=== PATIENT | female | born 1990 | race Caucasian/White ===

== ENCOUNTER 2017-03-02 19:07 | Emergency (ER) | payer MEDICAID ==
[~2017-03-02] VITALS: Ht 162.6 cm; Wt 50.0 kg
[2017-03-02] MEDS ORDERED: LORAZEPAM 2MG/ML CPJ IM STA (20:21)
[2017-03-02] MEDS ORDERED: HALOPERIDOL LACTATE 5MG/ML VIAL IM STA (20:21)
[2017-03-02] MEDS ORDERED: DIPHENHYDRAMINE 50MG/ML VIAL IM ONE (22:15)
[2017-03-02] MEDS ORDERED: HALOPERIDOL LACTATE 5MG/ML VIAL IM ONE (22:15)
[2017-03-02] MEDS ORDERED: LORAZEPAM 2MG/ML CPJ IM ONE (22:15)
[2017-03-02 22:45] LABS: BASOPHILS % 0.9 % (0.0-2.0); EOSINOPHILS % 4.3 % (0.0-5.0); HEMATOCRIT. 37.3 % (36.0-48.0); HEMOGLOBIN. 12.5 g/dL (12.0-16.0); LYMPHOCYTES % 34.6 % (20.0-50.0); MEAN CORPUSCULAR HEMOGLOBIN 30.4 pg (28.0-32.0); MEAN CORPUSCULAR VOLUME 90.5 fL (81.0-99.0); MEAN PLATELET VOLUME 8.9 fl (7.4-10.4); MONOCYTES % 7.3 % (2.0-8.0); NEUTROPHILS % 52.9 % (40.0-76.0); PLATELET 205 x1000/uL (130-400); RED BLOOD CELL COUNT 4.12 mill/uL (4.2-5.4); RED CELL DISTRIBUTION WIDTH 13.1 % (11.6-14.6)
[2017-03-02 22:51] LABS: CHLORIDE 109 mEq/L (98-107)
[2017-03-02 22:54] LABS: HCG SCREEN NEGATIVE
[2017-03-02 22:59] LABS: CARBON DIOXIDE 26 mEq/L (21-32); ETHANOL BLOOD < 10 mg/dL
[2017-03-02 23:55] LABS: CLARITY URINE CLEAR (CLEAR); COLOR URINE YELLOW (YELLOW); KETONES URINE NEGATIVE (NEGATIVE); LEUKOCYTE ESTERASE URINE 2+ (NEGATIVE); NITRITE URINE NEGATIVE (NEGATIVE); OCCULT BLOOD URINE NEGATIVE (NEGATIVE); PH URINE 6.5 (4.5-8.0); PROTEIN URINE NEGATIVE (NEGATIVE); SPECIFIC GRAVITY URINE 1.023 (1.005-1.030); UROBILINOGEN URINE 0.2 E.U./dL (0.2-1.0)
[2017-03-03 00:14] LABS: *AMPHETAMINES SCREEN URINE NEGATIVE (NEGATIVE); *BARBITURATES SCREEN URINE NEGATIVE (NEGATIVE); *BENZODIAZEPINES SCREEN URINE NEGATIVE (NEGATIVE); *COCAINE SCREEN URINE NEGATIVE (NEGATIVE); METHADONE URINE SCREEN NEGATIVE (NEGATIVE); OPIATES URINE SCREEN NEGATIVE (NEGATIVE); PHENCYCLIDINE URINE SCREEN NEGATIVE (NEGATIVE)
[2017-03-03 00:15] LABS: CANNABINOID URINE SCREEN PRESUMTIVE POSITIVE (NEGATIVE)
[2017-03-03] MEDS ORDERED: CEFTRIAXONE 1 G PREMIX 50 ML IV ONE (01:00)
[2017-03-06] MEDS ORDERED: HALOPERIDOL LACTATE 5MG/ML VIAL IM ONE (13:30)
[2017-03-06] MEDS ORDERED: LORAZEPAM 2MG/ML CPJ IM ONE (13:30)
[2017-03-08 16:49] VITALS: BP 98/52
== END 2017-03-08 16:53 ==
LOC: EDBD 19:19 → ER 19:19
DX: F23 Brief psychotic disorder (principal); N39.0 Urinary tract infection, site not specified; F12.929 Cannabis use, unspecified with intoxication, unspecified
CPT/HCPCS: 36415; 70450; 71010; 80053; 80305; 80307; 80329; 81001; 84703; 85025; 96365; 96372; 99285; G0482; J0696; J1200; J1630; J2060; Z7610